=== PATIENT | female | born 1990 | race Caucasian/White ===

== ENCOUNTER 2020-11-26 12:28 | Outpatient (CLI) | payer MEDICAID ==
[2020-11-26 19:12] LABS: BASOPHILS % (AUTO) 0.7 %; EOSINOPHILS # (AUTO) 0.2 10^3/uL (0.0-0.7); EOSINOPHILS % (AUTO) 2.8 %; HGB - HEMOGLOBIN 14.1 g/dL (12.0-16.0); LYMPHOCYTES # (AUTO) 1.9 10^3/uL (1.5-3.5); LYMPHOCYTES % (AUTO) 34.3 %; MEAN CORPUSCULAR HEMOGLOBIN 29.6 pg (27.0-31.0); MEAN CORPUSCULAR HGB CONC 32.2 g/dL (32.0-36.0); MEAN CORPUSCULAR VOLUME 91.8 fL (81.0-99.0); MEAN PLATELET VOLUME 11.1 fL (7.9-10.8); MONOCYTES # (AUTO) 0.4 10^3/uL (0.0-1.0); MONOCYTES % (AUTO) 8.1 %; NEUTROPHILS # (AUTO) 2.9 10^3/uL (1.5-6.6); NEUTROPHILS % (AUTO) 53.9 %; PLT - PLATELET COUNT 277 10^3/uL (130-450); RED BLOOD COUNT 4.77 10^6/uL (4.20-5.40); RED CELL DISTRIBUTION WIDTH 12.5 % (12.0-15.0); WHITE BLOOD COUNT 5.4 x10^3/uL (4.8-10.8)
[2020-11-26 19:17] LABS: ALBUMIN 4.8 g/dL (3.2-5.5); ALBUMIN/GLOBULIN RATIO 1.6 (1.0-2.2); BILIRUBIN,TOTAL 0.6 mg/dL (0.2-1.0); CALCIUM 9.7 mg/dL (8.5-10.3); CREATININE 0.8 mg/dL (0.4-1.0); TOTAL PROTEIN 7.8 g/dL (6.7-8.2)
== END 2020-11-26 12:29 | disposition home or self-care (01) ==
LOC: LAB.N 12:28
PROVIDERS: ATTEND Nurse Practitioner Family
DX: R59.1 Generalized enlarged lymph nodes (principal)
CPT/HCPCS: 36415; 80053; 85025

== ENCOUNTER 2021-11-20 17:48 | Emergency (ER) | payer MEDICAID, OTHER ==
[2021-11-20 18:14] LABS: BASOPHILS % (AUTO) 0.6 %; EOSINOPHILS % (AUTO) 0.3 %; HCT - HEMATOCRIT 42.6 % (37.0-47.0); HGB - HEMOGLOBIN 14.6 g/dL (12.0-16.0); LYMPHOCYTES # (AUTO) 1.4 10^3/uL (1.5-3.5); LYMPHOCYTES % (AUTO) 44.2 %; MEAN CORPUSCULAR HEMOGLOBIN 30.5 pg (27.0-31.0); MEAN CORPUSCULAR HGB CONC 34.3 g/dL (32.0-36.0); MEAN CORPUSCULAR VOLUME 88.9 fL (81.0-99.0); MEAN PLATELET VOLUME 9.8 fL (7.9-10.8); MONOCYTES # (AUTO) 0.3 10^3/uL (0.0-1.0); MONOCYTES % (AUTO) 8.2 %; NEUTROPHILS # (AUTO) 1.5 10^3/uL (1.5-6.6); NEUTROPHILS % (AUTO) 46.7 %; PLT - PLATELET COUNT 220 10^3/uL (130-450); RED BLOOD COUNT 4.79 10^6/uL (4.20-5.40); RED CELL DISTRIBUTION WIDTH 12.9 % (12.0-15.0); WHITE BLOOD COUNT 3.2 x10^3/uL (4.8-10.8)
--- NOTE | 2021-11-20 18:24 | ED Physician Documentation ---
History of Present Illness - Stated complaint Stated Complaint: ABD PX,WEAK,HOT FLASHES,BODYACHES,HEADACHE - Chief complaint Chief Complaint: Abd Pain - Additonal information Additional information: 31-year-old female presents emergency department for evaluation of left-sided lower abdominal pain and cramping that has been intermittent for about a week. She is approximately 7 weeks . She is also endorsed vague fevers congestion and a dry cough. She has had multiple sick contacts. Is not yet vaccinated for COVID-19. Patient denies vaginal bleeding or loss of fluids. LMP 10/08/2021 . Last delivered vaginally without complications. Review of Systems Constitutional: reports: Chills, Myalgias, Fatigue Eyes: reports: Reviewed and negative Nose: reports: Reviewed and negative Throat: reports: Reviewed and negative Cardiac: reports: Reviewed and negative Respiratory: reports: Reviewed and negative GI: reports: Abdominal Pain, Nausea, Vomiting : reports: LMP (10/08/2021). denies: Dysuria, Frequency Skin: reports: Reviewed and negative Musculoskeletal: reports: Reviewed and negative PD PAST MEDICAL HISTORY - Present Medications Home Medications: Ambulatory Orders Medication Instructions Recorded Confirmed Ondansetron Odt [Zofran Odt] 4 mg TL Q6H PRN #10 tablet 11/20/21 cephALEXin [Keflex] 500 mg PO BID #14 cap 11/20/21 - Allergies Allergies/Adverse Reactions: Allergies Allergy/AdvReac Type Severity Reaction Status Date / Time latex AdvReac Rash Verified 11/20/21 18:01 PD ED PE NORMAL - General General: Alert and oriented X 3, No acute distress, Well developed/nourished - HEENT HEENT: Atraumatic, Moist mucous membranes - Neck Neck: Supple, no meningeal sign, No adenopathy - Cardiac Cardiac: RRR, No murmur, No gallop - Respiratory Respiratory: No respiratory distress, Clear bilaterally - Abdomen Abdomen: Normal bowel sounds, Soft. 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 Eye Opening: Spontaneous Motor: Obeys Commands Verbal: Oriented GCS Score: 15 Results - Vitals Vitals: Vital Signs - 24 hr 11/20/21 11/20/21 17:54 18:00 Temperature 37.1 C Heart Rate 115 H 86 Respiratory 14 Rate Blood Pressure 137/85 H O2 Saturation 100 100 Oxygen O2 Source Room air - Labs Labs: Laboratory Tests 11/20/21 11/20/21 11/20/21 18:10 18:10 18:10 WBC 3.2 L RBC 4.79 Hgb 14.6 Hct 42.6 MCV 88.9 MCH 30.5 MCHC 34.3 RDW 12.9 Plt Count 220 MPV 9.8 Neut # (Auto) 1.5 Lymph # (Auto) 1.4 L [place] # (Auto) 0.3 Eos # (Auto) 0.0 Baso # (Auto) 0.0 Absolute Nucleated RBC 0.00 Nucleated RBC % 0.0 Sodium 133 L Potassium 3.2 L Chloride 99 L Carbon Dioxide 25 Anion Gap 9.0 BUN 8 Creatinine 0.6 Estimated GFR (MDRD) 117 Glucose 108 H Calcium 8.9 Total Bilirubin 0.2 AST 58 H ALT 59 Alkaline Phosphatase 57 Total Protein 7.5 Albumin 4.1 Globulin 3.4 Albumin/Globulin Ratio 1.2 Lipase 44 HCG, Quant 136145.00 Urine Color Urine Clarity Urine pH Ur Specific [place] Urine Protein Urine Glucose (UA) Urine Ketones Urine Occult Blood Urine Nitrite Urine Bilirubin Urine Urobilinogen Ur Leukocyte Esterase Urine RBC Urine WBC Ur Squamous Epith Cells Urine Bacteria Ur Microscopic Review Urine Culture Comments Blood Type 11/20/21 11/20/21 18:10 19:00 WBC RBC Hgb Hct MCV MCH MCHC RDW Plt Count MPV Neut # (Auto) Lymph # (Auto) [place] # (Auto) Eos # (Auto) Baso # (Auto) Absolute Nucleated RBC Nucleated RBC % Sodium Potassium Chloride Carbon Dioxide Anion Gap BUN Creatinine Estimated GFR (MDRD) Glucose Calcium Total Bilirubin AST ALT Alkaline Phosphatase Total Protein Albumin Globulin Albumin/Globulin Ratio Lipase HCG, Quant Urine Color YELLOW Urine Clarity HAZY Urine pH 6.5 Ur Specific [place] <=1.005 Urine Protein NEGATIVE Urine Glucose (UA) NEGATIVE Urine Ketones NEGATIVE Urine Occult Blood NEGATIVE Urine Nitrite NEGATIVE Urine Bilirubin NEGATIVE Urine Urobilinogen 0.2 (NORMAL) Ur Leukocyte Esterase TRACE H Urine RBC 0-5 Urine WBC 0-3 Ur Squamous Epith Cells FEW Squamous Urine Bacteria Many H Ur Microscopic Review INDICATED Urine Culture Comments INDICATED Blood Type O POSITIVE - Rads (name of study) OB US Radiology: Other (Per certified performance technologist patient measures 10 weeks 4 days. heart rate 171. Small left corpus luteal cyst. Very small mild subchorionic hemorrhage.) PD MEDICAL DECISION MAKING - ED course Complexity details: reviewed results, re-evaluated patient, considered differential, d/w patient ED course: 31-year-old female presents emergency department for evaluation of left lower abdominal cramping and discomfort. This is in the first trimester of . LMP 10/08/2021. G2, P1. Rh+ Patient is also endorsing fatigue, malaise, chills and cough. She has had multiple sick contacts is not yet vaccinated for COVID-19. COVID test is pending. Given mild leukopenia I do suspect however that she will be COVID- positive. OB ultrasound reveals a live IUP at 10 weeks 4 days with heart rate in the 170s. There is an associated small subchorionic hemorrhage as well as a small left corpus luteal cyst. UA shows bacteria. Will treat bacteria in . A prescription for Zofran was also sent to the pharmacy for nausea. Findings were discussed with patient. Emergent return precautions discussed. Departure - Departure Disposition: 01 Home, Self Care Clinical Impression: Threatened in early , Viral respiratory illness, Asymptomatic bacteriuria Subchorionic hemorrhage in first trimester Qualifiers: Fetus number: single or unspecified fetus Qualified Code(s): O41.8X10 - Other specified disorders of amniotic fluid and membranes, first trimester, not applicable or unspecified Condition: Stable Record reviewed to determine appropriate education?: Yes Instructions: ED Miscarriage Poss Prescriptions: cephALEXin [Keflex] 500 mg PO BID #14 cap Ondansetron Odt [Zofran Odt] 4 mg TL Q6H PRN #10 tablet PRN Reason: Nausea / Vomiting Comments: Rehana you were seen in the emergency department today for nausea, cough congestion malaise fatigue and lower abdominal cramping. As discussed at the bedside I suspect that you do have COVID-19. A test is pending. We will only notify you if it is positive. It may take 2 to 3 days before we have these results. Please quarantine until you know your results. Your family should quarantine with you. If you are confirmed to be COVID- positive you should treat this like a common cold in . Return to the emergency department only if you have fevers higher than 103, uncontrolled vomiting, severe shortness of breath or severe chest pain. The ultrasound today shows that you are approximately 10 weeks 4 days . The baby had a heart rate of 170 was normal. You do have a very small left corpus luteal cyst as well as a small subchorionic hemorrhage. Most women that have a subchorionic hemorrhage can go on to have a normal though it does put you at risk to have a miscarriage. You may find that you have a small amount of vaginal spotting. Reasons to return to the emergency department regarding yoru would include sudden severe lower abdominal pain, heavy vaginal bleeding or saturating a pad or tampon every hour for 6 or more hours. Your screening labs today otherwise did not show any worrisome findings. Your white blood cell count is a little bit low but we often see this in people that have COVID infection, though yours is not yet confirmed. Your electrolytes were essentially normal. There is a small amount of bacteria in your urine. This is always treated in early . A prescription has been sent to the [facility] in [place]. I am also sending a prescription for Zofran;This is a nausea medicine. It is important that you establish with an mobile device developer as soon as possible. We do know now after 2 years of COVID-19 and that women who are with COVID-19 or have a history of COVID-19 infection during are at higher risk for complications or miscarriage.
[2021-11-20 18:32] LABS: ALBUMIN 4.1 g/dL (3.2-5.5); ALBUMIN/GLOBULIN RATIO 1.2 (1.0-2.2); BILIRUBIN,TOTAL 0.2 mg/dL (0.2-1.0); CALCIUM 8.9 mg/dL (8.5-10.3); CREATININE 0.6 mg/dL (0.4-1.0); POTASSIUM 3.2 mmol/L (3.5-5.0); TOTAL PROTEIN 7.5 g/dL (6.7-8.2)
[2021-11-20 19:05] LABS: BILIRUBIN,URINE NEGATIVE (NEGATIVE); GLUCOSE, URINE (UA) NEGATIVE (NEGATIVE); KETONES,URINE (UA) NEGATIVE (NEGATIVE); LEUKOCYTE ESTERASE, URINE TRACE (NEGATIVE); NITRITE,URINE NEGATIVE (NEGATIVE); OCCULT BLOOD,URINE NEGATIVE (NEGATIVE); PH,URINE 6.5 PH (5.0-7.5); PROTEIN,URINE NEGATIVE (NEGATIVE); UROBILINOGEN,URINE 0.2 (NORMAL) E.U./dL (NORMAL)
[2021-11-20 19:07] LABS: CLARITY,URINE HAZY (CLEAR)
--- NOTE | 2021-11-20 19:17 | Ultrasound Report ---
PROCEDURE: OB First Trimester INDICATIONS: cramping, left sided abd pain; preg OUTSIDE/PRIOR DATING DATA: First dating scan (date and location): 11/20/2021. Estimated date of delivery (TERESITA) from first dating scan: 06/14/2022. The below data below was generated using the ultrasound TERESITA of 06/14/2022 TECHNIQUE: Real-time scanning was performed of the fetus and maternal pelvic organs, with image documentation. COMPARISON: None. FINDINGS: Embryo: Rump length measures 3.7 cm, 10 weeks 4 days. Yolk sac is seen. Heart rate: 171 bpm Small subchorionic hemorrhage measuring 1.6 x 1.2 x 0.5 cm. Measurement variability in dating: +/- 4 weeks by LMP, +/- 7 days by mean sac diameter (use before 6 weeks gestation if crown-rump length not able to be measured), +/- 5 days by crown-rump length (6-12 weeks gestation). Maternal organs: Ovaries are within normal limits. Left corpus luteum. IMPRESSION: 1. Merchant living intrauterine at 10 weeks 4 days based on today's crown-rump length. 2. Small perigestational hemorrhage. Reviewed by: Derrick Muhammad MD on 11/20/2021 7:15 PM PST Approved by: Derrick Muhammad MD on 11/20/2021 7:15 PM PST Station ID: [id number]
[2021-11-20 19:24] LABS: BACTERIA,URINE Many /HPF (None Seen); RBC,URINE 0-5 /HPF (0-5); SQUAMOUS EPITHELIAL CELL,UR FEW Squamous (<= Few); WBC,URINE 0-3 /HPF (0-5)
[2021-11-20 19:42] VITALS: BP 136/79
== END 2021-11-20 19:42 | disposition home or self-care (01) ==
LOC: ED 17:48
DX: O98.511 Other viral diseases complicating pregnancy, first trimester (principal); U07.1 COVID-19; O20.0 Threatened abortion; Z3A.10 10 weeks gestation of pregnancy; O99.519 Diseases of the respiratory system complicating pregnancy, unspecified trimester; J06.9 Acute upper respiratory infection, unspecified; O41.8X10 Other specified disorders of amniotic fluid and membranes, first trimester, not applicable or unspecified; R82.71 Bacteriuria
CPT/HCPCS: 36415; 80053; 81001; 81003; 83690; 84702; 85025; 86900; 86901; 87086; 99284

== ENCOUNTER 2022-01-05 13:49 | Emergency (ER) | payer OTHER ==
[2022-01-05] MEDS ORDERED: PROPARACAINE 0.5% OPHTH DROPS 15 ML EACHEYE STA (14:25)
--- NOTE | 2022-01-05 14:45 | ED Physician Documentation ---
PD HPI OPHTHO - Stated complaint Stated Complaint: LT EYE INJ - Chief complaint Chief Complaint: Heent - History obtained from History obtained from: Patient - History of Present Illness Timing - onset: Yesterday Timing - duration: Days (2) Timing - details: Abrupt onset Pain level max: 5 Pain level now: 5 Location: Left Associated symptoms: Redness, Tearing Contributing factors: Blunt trauma. No: Wears contacts - Additional information Additional information: Patient is a 31-year-old female who presents to the emergency department after being poked in the left eye by her child last night. Continued redness and tearing today. Nothing makes it better or worse. Does not wear contacts. She states she also has a migraine headache. This is typical of her usual headache. Has not taken anything for it. No fevers. No vomiting. No vision changes. No vaginal bleeding or discharge. 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 : None HEENT: None Psych: Depression, Anxiety Musculoskeletal: None Derm: None - Past Surgical History Past Surgical History: No - Present Medications Home Medications: Ambulatory Orders Medication Instructions Recorded Confirmed Tobramycin [Tobrex] 2 drops LEFTEYE Q6H 7 Days #5 ml 01/05/22 - Allergies Allergies/Adverse Reactions: Allergies Allergy/AdvReac Type Severity Reaction Status Date / Time latex AdvReac Rash Verified 01/05/22 13:54 - Social History Does the pt smoke?: No Smoking Status: Never smoker Does the pt drink ETOH?: No Does the pt have substance abuse?: No - Immunizations Immunizations are current?: No Immunizations: Other immun not current PD ED PE NORMAL - Vitals Vital signs reviewed: Yes - General General: Alert and oriented X 3, No acute distress - HEENT HEENT: Atraumatic, PERRL, EOMI, Moist mucous membranes, Other (Left eye has redness and tearing. Fluorescein uptake on the medial aspect of the cornea. Otherwise normal examination of the left eye and surrounding area. 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, No motor deficit, No sensory deficit, Normal speech Eye Opening: Spontaneous Motor: Obeys Commands Verbal: Oriented GCS Score: 15 Results - Vitals Vitals: Vital Signs - 24 hr 01/05/22 01/05/22 01/05/22 13:54 14:16 14:27 Temperature 36.9 C Heart Rate 112 H 110 H 89 Respiratory 16 16 16 Rate Blood Pressure 130/74 124/80 112/73 O2 Saturation 100 100 97 01/05/22 15:05 Temperature 37.3 C Heart Rate 104 H Respiratory 20 Rate Blood Pressure 128/78 O2 Saturation 98 Oxygen O2 Source Room air PD MEDICAL DECISION MAKING - ED course Complexity details: reviewed old records, reviewed results, re-evaluated patient, considered differential, d/w patient ED course: 31-year-old female, 18 weeks , presents with a left eye corneal abrasion. Will place on tobramycin drops. She declines any work-up for her headache or any treatment for her headache. She states she has not taken anything for the headache but will take Tylenol when she gets home. GCS 15. Normal neurological exam. No indication of preeclampsia. Blood pressure for this patient she states is normally 1 20-1 30. Patient counseled regarding signs and symptoms for which I believe and urgent re-evaluation would be necessary. Patient with good understanding of and agreement to plan and is comfortable going home at this time This document was made in part using voice recognition software. While efforts are made to proofread this document, sound alike and grammatical errors may occur. Departure - Departure Disposition: 01 Home, Self Care Clinical Impression: Corneal abrasion, left Qualifiers: Encounter type: initial encounter Qualified Code(s): S05.02XA - Injury of conjunctiva and corneal abrasion without foreign body, left eye, initial encounter Condition: Good Instructions: ED Eye Injury Corneal Abrasion Follow-Up: your,doctor in 1 week [Other] Prescriptions: Tobramycin [Tobrex] 2 drops LEFTEYE Q6H 7 Days #5 ml Comments: Your antibiotic drops were sent to [facility] in [place]. Please follow-up with your doctor for further care. Return if you worsen. You can use artificial tears or gel tears as well. Often these can help with the pain for the first 2 days. Discharge Date/Time: 01/05/22 15:05
[2022-01-05 15:05] VITALS: BP 128/78
== END 2022-01-05 15:05 | disposition home or self-care (01) ==
LOC: ED 13:49
DX: O9A.212 Injury, poisoning and certain other consequences of external causes complicating pregnancy, second trimester (principal); W50.0XXA Accidental hit or strike by another person, initial encounter; S05.02XA Injury of conjunctiva and corneal abrasion without foreign body, left eye, initial encounter; Z3A.18 18 weeks gestation of pregnancy
CPT/HCPCS: 99282; 99283; J3490

== ENCOUNTER 2022-06-25 13:00 | Outpatient (CLI) | payer OTHER, MEDICAID | END 2022-06-25 13:01 | disposition critical access hospital (66) | LOC: EMS 13:00 | DX: O72.1 Other immediate postpartum hemorrhage (principal) | CPT/HCPCS: A0425; A0427 ==

== ENCOUNTER 2022-06-30 17:00 | Outpatient (CLI) | payer OTHER, MEDICAID ==
[2022-06-30 18:32] LABS: BASOPHILS # (AUTO) 0.1 10^3/uL (0.0-0.1); BASOPHILS % (AUTO) 0.4 %; EOSINOPHILS # (AUTO) 0.2 10^3/uL (0.0-0.7); EOSINOPHILS % (AUTO) 1.3 %; HCT - HEMATOCRIT 26.9 % (37.0-47.0); HGB - HEMOGLOBIN 7.6 g/dL (12.0-16.0); LYMPHOCYTES % (AUTO) 24.9 %; MEAN CORPUSCULAR HGB CONC 28.3 g/dL (32.0-36.0); MEAN CORPUSCULAR VOLUME 99.3 fL (81.0-99.0); MEAN PLATELET VOLUME 10.6 fL (7.9-10.8); MONOCYTES # (AUTO) 0.5 10^3/uL (0.0-1.0); MONOCYTES % (AUTO) 4.5 %; NEUTROPHILS # (AUTO) 8.1 10^3/uL (1.5-6.6); NEUTROPHILS % (AUTO) 67.8 %; NRBC ABSOLUTE COUNT (AUTO) 0.02 x10^3/uL; NUCLEATED RED BLOOD CELLS AUTO 0.2 /100WBC; PLT - PLATELET COUNT 424 10^3/uL (130-450); RED BLOOD COUNT 2.71 10^6/uL (4.20-5.40); RED CELL DISTRIBUTION WIDTH 18.4 % (12.0-15.0)
[2022-06-30 18:57] LABS: PLATELET ESTIMATE, MANUAL NORMAL (130-450,000) (NORMAL); PLATELET MORPHOLOGY 1+ GIANT PLATELETS (NORMAL); SLIDE REVIEW? Indicated; WBC MORPHOLOGY (MULTIPLE) NORMAL APPEARANCE (NORMAL)
== END 2022-06-30 23:59 | disposition home or self-care (01) ==
LOC: LAB.R 17:00
PROVIDERS: ATTEND Midwife
DX: O90.9 Complication of the puerperium, unspecified (principal)
CPT/HCPCS: 82728; 85025